=== PATIENT | female | born 1945 | race Caucasian/White ===

== ENCOUNTER 2018-10-04 19:45 | Emergency (ER) | payer OTHER ==
--- NOTE | 2018-10-04 20:49 | PDOC ---
History of Present Illness - General Stated Complaint: CHEST TIGHTNESS History Source: Patient Exam Limitations: No Limitations - History of Present Illness Initial Comments: 10/05/18 01:15 73 yo F with a hx of HTN presents to the emergency department with chest pain that has been ongoing for the past week intermittently with worsening today. Per the patient, she had a tib/fib fracture sustained late August and put into a full leg cast and currently at [facility] for rehab. Per the patient, she had chest pain at 9am today that lasted for 2 minutes, located in the right center chest wall, without radiation, 5/10 in severity, and occurring at rest. Denies the following: fever, chills, visual changes, headache, lightheadedness, nausea, vomiting, abdominal pain, dysuria, hematuria, diarrhea, melena, and hematochezia. Allergies: Naproxen Social: Denies tobacco, alcohol, and substance abuse. Past History - Past Medical History Allergies/Adverse Reactions: Allergies Allergy/AdvReac Type Severity Reaction Status Date / Time naproxen [From Aleve] Allergy Verified 10/05/18 03:07 Home Medications: Ambulatory Orders Unobtainable 10/05/18 Heart Score/ECG Review - History History: Slightly suspicious - Electrocardiogram EKG: Non specific repolarization disturbance - Age Age: >/= 65 - Risk Factors Risk Factors Heart Score: Yes Hx Hypertension Based on the list above the patient has:: 1-2 risk factors - Troponin Troponin: </= normal limit - Score Heart Score - Total: 4 - ECG Intrepretation Comment:: normal sinus rhythm with ventricular rate of 63 bpm, AL of 156 ms, QTc is 411 ms. QRS is 94 ms. Incomplete right bundle branch block. ED Treatment Course - LABORATORY CBC & Chemistry Diagram: 10/04/18 21:36 10/04/18 21:36 Medical Decision Making - Medical Decision Making 73 yo F with a hx of HTN presents to the emergency department with chest pain that has been ongoing for the past week intermittently with worsening today. Initial vitals: Initial Vital Signs Temp Pulse Resp BP Pulse Ox 97 F L 65 18 182/71 H 99 10/04/18 20:49 10/04/18 20:49 10/04/18 20:49 10/04/18 20:49 10/04/18 20:49 Work up: ddx: ACS, aortic dissection vs PNA vs esophagitis vs gastritis vs costochrondiritis vs muscle spasm related to deconditioning vs PE vs metabolic disturbance vs pericarditis. Laboratory Tests 10/04/18 10/04/18 10/04/18 21:21 21:36 21:36 WBC 7.4 RBC 4.23 Hgb 13.3 Hct 38.2 MCV 90.3 MCH 31.4 MCHC 34.8 RDW 13.4 Plt Count 293 MPV 8.0 Absolute Neuts (auto) 4.1 Neutrophils % 55.9 Lymphocytes % 31.8 Monocytes % 9.2 Eosinophils % 2.2 Basophils % 0.9 Nucleated RBC % 0 PT with INR 11.10 INR 0.94 D-Dimer 1185 H Sodium Potassium Chloride Carbon Dioxide Anion Gap BUN Creatinine Creat Clearance w eGFR Random Glucose Calcium Magnesium Total Bilirubin AST ALT Alkaline Phosphatase Troponin I Total Protein Albumin 10/04/18 21:36 WBC RBC Hgb Hct MCV MCH MCHC RDW Plt Count MPV Absolute Neuts (auto) Neutrophils % Lymphocytes % Monocytes % Eosinophils % Basophils % Nucleated RBC % PT with INR INR D-Dimer Sodium 141 Potassium 4.2 Chloride 105 Carbon Dioxide 26 Anion Gap 9 BUN 16 Creatinine 0.9 Creat Clearance w eGFR > 60 Random Glucose 107 H Calcium 9.1 Magnesium 2.4 Total Bilirubin 0.2 AST 14 L ALT 17 Alkaline Phosphatase 107 Troponin I < 0.02 Total Protein 7.6 Albumin 3.9 CXR shows no acute pathologies. first troponin was negative. labs within normal limits except for elevated d-dimer 1185. This is concerning given she is not taking aspirin, immobilized, and has chest pain with SOB. HEART score of 4. EKG showed biphasic t waves in AVF and III. A ct chest with IV contrast to rule out PE was ordered but the patient refused the scan. her reason was centered on not wanting radiation. despite explaining the benefits of the scan and the potential risks associated with the scan, the patient continued to refuse the scan. She was given lovenox. Dispo was to admit the patient to telemetry for chest pain and rule out PE with vq scan. patient initially accepted the plan but later reversed course. The patient has the capacity to make decisions based on my conversations with her. She understands the risks of leaving against medical advice and the dire consequences associated with it. these were explained to her that include further deterioration up to . The patient stated she will follow up with her PMD and was given return precautions. Transport was arranged for her back to [facility]. Dispo: AMA *DC/Admit/Observation/Transfer Diagnosis at time of Disposition: Pain - Discharge Dispostion Disposition: AGAINST MEDICAL ADVICE - Referrals Referrals: Paco García MD [Primary Care Provider] - - Patient Instructions - Post Discharge Activity
[2018-10-04 20:53] VITALS: TEMP 97; BMI 22.8
--- NOTE | 2018-10-04 21:07 | PDOC ---
Attending Attestation - Resident Resident Name: Sam Mortensen - ED Attending Attestation I have performed the following: I have examined & evaluated the patient, The case was reviewed & discussed with the resident, I agree w/resident's findings & plan - HPI HPI: 10/04/18 23:49 [id number], with a significant past medical history of HTN, who presents to the emergency department with, intermittent chest pain with associated mild shortness of breath. She describes her pain as right wall pain, 5/10, squeezing sensation lasting a few minutes. She notes at 9am her episode was worse than previous. Currently at [facility] after a LLE tib-fib fracture, in a long cast. She denies recent fevers, chills, headache or dizziness. She denies recent nausea, vomit, diarrhea or constipation. She denies recent dysuria, frequency, urgency or hematuria. Allergies: Naproxen Social history: [facility]. Primary Care Physician: Dr. Paco García - Physicial Exam PE: 10/04/18 23:47 NAD, well appearing, PERRL, EOMI, MMM, nl conjunctiva, anicteric; neck supple. lungs clear, RRR, abdomen soft nontender. ROMERO x4, no focal neuro deficits. No peripheral edema. normal color for ethnicity, WWP. LLE long leg cast, wiggles toes, NVI - Medical Decision Making 10/04/18 23:44 See HPI for details DDx chest pain: ACS, PE, dissection, PUD, esophageal spasm, GERD, gastritis, costochondritis, pneumonia, pleurisy, pericarditis/myocarditis. dehydration, electrolyte/metabolic derangements. Vital signs reviewed, wnl. Prior notes reviewed, including admissions, discharges and consultations. laboratory results and imaging reviewed, basic labs and lytes wnl, +elevated dimer more than age adjusted, given immobilization and cp/sob sx, PE rule out. CXR_clear, no infiltrate. Cardiac panel_neg trop, reassuring. EKG normal sinus rhythm, no interval abnormalities, narrow QRS, ST and T wave segments and morphology normal. Nonspecific T wave abnormalities - mild upsloping ST elevations in Vi-2, no reciprocal depressions, biphasic T waves in AVF and III. ED course: no acute events. in long cast for tib fib fx ordered for, but refusing CT. given therapeutic Lovenox, monitor and defer to inpatient team. Plan to Admit for chest pain eval, telemetry, r/o PE.. Discussed results and management plan with pt at bedside, agree with impression and plan - however, changed her mind. Discussion at the bedside with patient. Pt has capacity to make medical decisions. Discussed indications for treatment and admission, management plan, risks and benefits. There is no evidence of psychosis, altered mental status or intoxication. Pt understands the nature of condition and treatment plan, including potential risks but not limited to: cardiac arrest, severe infection , dehydration, myocardial infarction, arrhythmia, pulmonary embolism/DVT/blood clot, stroke, respiratory failure, coma, severe disability and . Pt will be treated and close follow up with primary care doctor with reevaluation. Return precautions advised, call 911 immediately if severe life threatening symptoms or concerns.. Pt has verbalized understanding of information provided, questions answered. will bring back to [facility] 10/05/18 01:24 10/05/18 02:48
[2018-10-04 21:43] LABS: BASO % 0.9 % (0-2.0); EOS % 2.2 % (0-4.5); HEMATOCRIT 38.2 % (32.4-45.2); HEMOGLOBIN 13.3 GM/dL (10.7-15.3); LYMPH % 31.8 % (8-40); MCH 31.4 pg (25.7-33.7); MCHC 34.8 g/dl (32.0-36.0); MEAN CELL VOLUME 90.3 fl (80-96); MONO % 9.2 % (3.8-10.2); NEUT % 55.9 % (42.8-82.8); PLATELET COUNT 293 K/MM3 (134-434); RBC 4.23 M/mm3 (3.60-5.2); RDW 13.4 % (11.6-15.6); WHITE BLOOD COUNT 7.4 K/mm3 (4.0-10.0)
[2018-10-04 22:18] LABS: ALBUMIN 3.9 g/dl (3.4-5.0); ALK PHOS 107 U/L (45-117); ANION GAP 9 MMOL/L (8-16); BILIRUBIN,TOTAL 0.2 mg/dL (0.2-1); BLOOD UREA NITROGEN 16 mg/dL (7-18); CALCIUM 9.1 mg/dL (8.5-10.1); CHLORIDE 105 mmol/L (98-107); CO2 26 mmol/L (21-32); CREATININE 0.9 mg/dL (0.55-1.3); GLUCOSE,RANDOM 107 mg/dL (74-106); MAGNESIUM 2.4 mg/dL (1.8-2.4); POTASSIUM 4.2 mmol/L (3.5-5.1); SGOT/AST 14 U/L (15-37); SGPT/ALT 17 U/L (13-61); SODIUM 141 mmol/L (136-145); TOT PROT 7.6 g/dl (6.4-8.2)
[2018-10-04 22:40] LABS: INR 0.94 (0.83-1.09); PROTHROMBIN TIME (PATIENT) 11.1 SEC (9.7-13.0)
[2018-10-05 03:12] VITALS: BP 162/74; PULSE 61
--- NOTE | 2018-10-05 11:26 | EKG ---
Test Reason : Blood Pressure : / mmHG Vent. Rate : 063 BPM Atrial Rate : 063 BPM P-R Int : 156 ms QRS Dur : 094 ms QT Int : 402 ms P-R-T Axes : 000 -22 -23 degrees QTc Int : 411 ms NORMAL SINUS RHYTHM INCOMPLETE RIGHT BUNDLE BRANCH BLOCK LEFT VENTRICULAR HYPERTROPHY WITH REPOLARIZATION ABNORMALITY CANNOT RULE OUT SEPTAL INFARCT , AGE UNDETERMINED LATERAL INFARCT , AGE UNDETERMINED ABNORMAL ECG NO PREVIOUS ECGS AVAILABLE Confirmed by LIANG RAZA, IGNACIO ([id number]) on 10/05/2018 11:26:22 AM Referred By: Confirmed By:IGNACIO TAVERA MD
== END 2018-10-05 03:12 | disposition left against medical advice (07) ==
LOC: JER 19:45
DX: R07.9 Chest pain, unspecified (principal); I10 Essential (primary) hypertension; Z87.81 Personal history of (healed) traumatic fracture
CPT/HCPCS: 36415; 71046-TC-FY; 80053; 83735; 84484; 85025; 85379; 85610; 93005; 93010; 99283-25